=== PATIENT | female | born 1940 | race Caucasian/White ===

== ENCOUNTER 2019-09-08 13:00 | Emergency (ER) | payer MEDICARE, BC ==
[~2019-09-08] VITALS: Ht 160 cm; Wt 60.5 kg
[2019-09-08] MEDS ORDERED: PROAAER10 INH (13:15)
[2019-09-08] MEDS ORDERED: methylPREDNISolone INJ 125 MG/2 ML VIAL (J2930) IV ONE (13:15)
[2019-09-08] MEDS ORDERED: HYDR-3911 PO (13:15)
[2019-09-08] MEDS ORDERED: LOSA100T50 PO (13:15)
[2019-09-08] MEDS ORDERED: DILT1CAP7 PO (13:15)
[2019-09-08] MEDS ORDERED: IPRATROPIUM 0.5MG/ALBUTEROL 2.5MG INH SOL UD 3ML (DUONEB)(J7620) NEB ONE (13:15)
[2019-09-08] MEDS ORDERED: ATEN50TA2 PO (13:15)
[2019-09-08] MEDS ORDERED: ADV250INH INH (13:15)
[2019-09-08] MEDS ORDERED: SPIR1CAP INH (13:15)
[2019-09-08] MEDS ORDERED: DALI1TAB2 PO (13:16)
[2019-09-08 13:33] LABS: VENOUS BASE EXCESS 3.2 (-2.0-2.0); VENOUS O2 SATURATION 52.7 % (60.0-80.0); VENOUS PARTIAL PRESSURE CO2 54.9 mmHg (38.0-50.0); VENOUS PARTIAL PRESSURE O2 29.9 mmHg (30.0-50.0); VENOUS PH 7.355 UNITS (7.330-7.430); VENOUS STANDARD HCO3 26.2 MEQ/L; VENOUS TOTAL CO2 31.7 MEQ/L (24.0-28.0)
[2019-09-08 13:39] LABS: BASO # 0.1 10^3/uL (0.0-0.2); BASO % 0.6 % (0.0-1.0); EOS # 0.1 10^3/uL (0.0-0.5); EOS % 0.9 % (0.0-3.0); HEMATOCRIT 37.7 % (36.0-47.0); HEMOGLOBIN 12.7 g/dl (12.0-15.5); LYMPH # 1.6 10^3/uL (1.5-5.0); LYMPH % 12.3 % (24.0-44.0); MEAN CORPUSCULAR HEMOGLOBIN 30.2 pg (27.0-33.0); MEAN CORPUSCULAR HGB CONC 33.7 g/dl (32.0-36.5); MEAN CORPUSCULAR VOLUME 89.5 fl (80.0-96.0); MONO # 0.7 10^3/uL (0.0-0.8); MONO % 5.5 % (0.0-5.0); NEUTROPHILS # 10.1 10^3/uL (1.5-8.5); NEUTROPHILS % 80.3 % (36.0-66.0); PLATELET COUNT, AUTOMATED 362 10^3/uL (150-450); RED BLOOD COUNT 4.21 10^6/uL (4.00-5.40); WHITE BLOOD COUNT 12.6 10^3/uL (4.0-10.0)
--- NOTE | 2019-09-08 14:03 | REP ---
Single view chest: 09/08/2019. Indication: Dyspnea. Comparison: None. Findings: The lungs are clear. There is no pleural effusion or pneumothorax. The cardiac silhouette is unremarkable. Impression: Clear lungs. Electronically Signed by Ryan Bailey DO 09/08/2019 01:54 P
[2019-09-08 14:12] LABS: BLOOD UREA NITROGEN 8 MG/DL (7-18); CARBON DIOXIDE LEVEL 30 MEQ/L (21-32); CHLORIDE LEVEL 91 MEQ/L (98-107); CK-MB VALUE MASS 1.6 NG/ML (<3.6); CPK CREATINE PHOSPHOKINASE 63 U/L (26-192); CREATININE FOR GFR 0.62 MG/DL (0.55-1.30); GLOMERULAR FILTRATION RATE > 60.0 (>32); GLUCOSE, FASTING 118 MG/DL (70-100); MB/CK RELATIVE INDEX 2.54 (< OR =4); NT-PRO BNP 254 PG/ML (<450); POTASSIUM SERUM 4.2 MEQ/L (3.5-5.1); SODIUM LEVEL 128 MEQ/L (136-145); THYROID STIMULATING HORMONE 0.748 uIU/ML (0.358-3.740); TROPONIN I < 0.02 NG/ML (< 0.10)
[2019-09-08] MEDS ORDERED: PRED10TA2 PO (14:39)
[2019-09-08 14:45] VITALS: BP 134/67
--- NOTE | 2019-09-09 10:03 | ECGEPIP ---
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
== END 2019-09-08 15:17 | disposition home or self-care (01) ==
LOC: M ED 13:00
DX: J44.1 Chronic obstructive pulmonary disease with (acute) exacerbation (principal); I11.0 Hypertensive heart disease with heart failure; Z79.51 Long term (current) use of inhaled steroids; Z79.899 Other long term (current) drug therapy; Z79.1 Long term (current) use of non-steroidal anti-inflammatories (NSAID)
CPT/HCPCS: 71045; 80048; 82550; 82553; 82803; 83880; 84443; 84484; 85025; 87040; 93005; 93041; 96374; 99285; J2930

== ENCOUNTER 2021-07-09 14:08 | Inpatient (IN) | payer BC, MEDICARE ==
[~2021-07-09] VITALS: Ht 160 cm; Wt 53.0 kg
[~2021-07-09 14:08] MED LIST: ADV250INH INH; ATEN50TA2 PO; DALI1TAB2 PO; DILT1CAP7 PO; HYDR-3911 PO; LOSA100T50 PO; PRED10TA2 PO; PROAAER10 INH; SPIR1CAP INH
[2021-07-09] MEDS ORDERED: ATEN25TA PO (14:39)
[2021-07-09] MEDS ORDERED: ADV500INH INH (14:39)
[2021-07-09] MEDS ORDERED: LOSA100T8 PO (14:39)
[2021-07-09] MEDS ORDERED: methylPREDNISolone 125MG 2ML VIAL IV ONE (14:55)
[2021-07-09 15:34] LABS: BASO % 0.1 % (0.0-1.0); EOS % 0.1 % (0.0-3.0); HEMATOCRIT 35.7 % (36.0-47.0); LYMPH # 0.7 10^3/uL (1.5-5.0); LYMPH % 5.2 % (24.0-44.0); MEAN CORPUSCULAR HEMOGLOBIN 29.1 pg (27.0-33.0); MEAN CORPUSCULAR HGB CONC 33.6 g/dl (32.0-36.5); MEAN CORPUSCULAR VOLUME 86.4 fl (80.0-96.0); MONO # 0.4 10^3/uL (0.0-0.8); MONO % 2.5 % (2.0-8.0); NEUTROPHILS % 91.5 % (36.0-66.0); PLATELET COUNT, AUTOMATED 373 10^3/uL (150-450); RED BLOOD COUNT 4.13 10^6/uL (4.00-5.40); WHITE BLOOD COUNT 14.2 10^3/uL (4.0-10.0)
[2021-07-09 16:03] LABS: RSV AMPLIFICATION NEGATIVE (NEGATIVE)
[2021-07-09 16:05] LABS: ALBUMIN 3.5 GM/DL (3.2-5.2); ALT/SGPT 33 U/L (12-78); BILIRUBIN,DIRECT 0.2 MG/DL (0.0-0.2); BILIRUBIN,TOTAL 0.4 MG/DL (0.2-1.0); BLOOD UREA NITROGEN 11 MG/DL (7-18); CALCIUM LEVEL 8.6 MG/DL (8.8-10.2); CARBON DIOXIDE LEVEL 30 MEQ/L (21-32); CHLORIDE LEVEL 91 MEQ/L (98-107); CK-MB VALUE MASS 1.3 NG/ML (<3.6); CPK CREATINE PHOSPHOKINASE 23 U/L (26-192); CREATININE FOR GFR 0.58 MG/DL (0.55-1.30); GLOMERULAR FILTRATION RATE > 60.0 (>32); GLUCOSE, FASTING 150 MG/DL (70-100); MB/CK RELATIVE INDEX 5.65 (< OR =4); NT-PRO BNP 293 PG/ML (<450); POTASSIUM SERUM 4.6 MEQ/L (3.5-5.1); SODIUM LEVEL 127 MEQ/L (136-145); THYROID STIMULATING HORMONE 0.602 uIU/ML (0.358-3.740); TOTAL PROTEIN 6.8 GM/DL (6.4-8.2); TROPONIN I < 0.02 NG/ML (< 0.10)
--- NOTE | 2021-07-09 16:07 | REP ---
INDICATION: DYSPNEA/COUGH COMPARISON: 09/08/2019 TECHNIQUE: Portable AP view of the chest FINDINGS: The mediastinum and cardiac silhouette are stable and within normal limits for portable technique. The lung de la rosa demonstrate chronic interstitial changes without acute consolidation, effusion, or pneumothorax. Skeletal structures are intact. IMPRESSION: No acute cardiopulmonary process appreciated. <Electronically signed by Xavi Fontenot > 07/09/21 [id number]
[2021-07-09] MEDS ORDERED: IPRATROPIUM 0.5MG/ALBUTEROL 2.5MG INH SOL UD 3ML (DUONEB) NEB ONE (16:20)
--- NOTE | 2021-07-09 17:37 | HPEPDOC ---
[facility] Medical History & Physical Date of Admission Jul 09, 2021 Date of Service: Jul 09, 2021 History and Physical H&P dictated job 3 [id number] a/p 81 y/o F lives alone w 3l o2 dependent copd htn appy, hysterectomy failed on prednisone and abx for copd exacerbation managed by Dr. Armstrong presents w 1wk worsening sob , velazquez, weakness now dependent on her walker. cxr neg covid neg. copd exacerbation steroid induced leukocytosis chronic 2-3l home o2 dependent/hypoxic resp failure HTN -solumedrol iv q6hrs, doxycycline,nebs. cxr no infiltrate titrate o2 90-92% -pfs consult for assisted living placement per pt request -resume home bp meds. Vital Signs Vital Signs Date Time Temp Pulse Resp B/P (MAP) Pulse Ox O2 Delivery O2 Flow Rate FiO2 07/09/21 17:18 82 135/71 (92) 98 07/09/21 15:41 Nasal Cannula 3.0 07/09/21 14:09 98.3 19 Laboratory Data Labs 24H Laboratory Tests 2 07/09/21 14:58: Anion Gap 6L, Glomerular Filtration Rate > 60.0, Calcium Level 8.6L, Total Bilirubin 0.4, Direct Bilirubin 0.2, Aspartate Amino Transf (AST/SGOT) 17, Alanine Aminotransferase (ALT/SGPT) 33, Alkaline Phosphatase 81, Total Creatine Kinase 23L, Creatine Kinase MB 1.3, Creatine Kinase MB Relative Index 5.65H, Tro ponin I < 0.02, IR-Loh-T-Type Natriuretic Peptide 293, Total Protein 6.8, Albumin 3.5, Albumin/Globulin Ratio 1.1L, Thyroid Stimulating Hormone (TSH) 0.602 07/09/21 14:59: Immature Granulocyte % (Auto) 0.6, Neutrophils (%) (Auto) 91.5H, Lymphocytes (%) (Auto) 5.2L, Monocytes (%) (Auto) 2.5, Eosinophils (%) (Auto) 0.1, Basophils (%) (Auto) 0.1, Neutrophils # (Auto) 13.0H, Lymphocytes # (Auto) 0.7L, Monocytes # (Auto) 0.4, Eosinophils # (Auto) 0.0, Basophils # (Auto) 0.0, Nucleated Red Blood Cells % (auto) 0.0, Lactic Acid Level 1.2, Coronavirus (COVID-19)(PCR) NEGATIVE, Influenza Type A (RT-PCR) NEGATIVE, Influenza Type B (RT-PCR) NEGATIVE, Respiratory Syncytial Virus (PCR) NEGATIVE CBC/BMP Laboratory Tests 07/09/21 14:58 07/09/21 14:59 Microbiology Microbiology 07/09/21 Blood Culture, Received Pending 07/09/21 Blood Culture, Received Pending Home Medications Scheduled Diltiazem HCl (Diltiazem 24Hr ER) 300 Mg Cap.sa.24h, 1 CAP PO DAILY Hydralazine HCl (Hydralazine HCl) 50 Mg Tablet, 50 MG PO TID Prednisone (Prednisone) 10 Mg Tablet, 10 MG PO ASDIRECTED 4 po day 1-3; 3 po day 4-5; 2 po day 6-7; 1 po day 8-9, Salmeterol/Fluticasone (Advair 500-50 Diskus) 1 Each Blst.w.dev, 1 PUFF INH BID Tiotropium [place] (Spiriva) 18 Mcg Cap.w.dev, 18 MCG INH DAILY Scheduled PRN Albuterol Sulfate (Proair Hfa) 8.5 Gm Hfa.aer.ad, 1 PUFF INH for SHORTNESS OF BREATH Miscellaneous Medications Atenolol (Atenolol) 25 Mg Tablet Losartan/Hydrochlorothiazide (Losartan-Hctz 100-12.5 mg Tab) 1 Each Tablet Allergies Coded Allergies: No Known Allergies (Unverified , 09/08/19) A-FIB/CHADSVASC A-FIB History Current/History of A-Fib/PAF?: No Current PO Anticoag Therapy: No Age/Risk Factor Scoring CHADSVASC: CHADSVASC Response (Comments) Value Age Risk Factor Age >/= 75 years old 2 Gender Risk Factor Female 1 Hx of CHF No 0 Hx of HTN Yes 1 Hx of Stroke/TIA/or VTE No 0 Hx of Diabetes No 0 Hx of Vascular Disease No 0 Total 4 Treatment Treatment ordered: NONE ZHANE BUENROSTRO MD Jul 09, 2021 17:37
[2021-07-09] MEDS ORDERED: IPRA0.00 NEB (17:38)
[2021-07-09] MEDS ORDERED: HYDR-3910 PO (17:38)
[2021-07-09] MEDS ORDERED: FLUT1BLS3 INH (17:38)
[2021-07-09] MEDS ORDERED: PRED10TA2 PO (17:40)
[2021-07-09] MEDS ORDERED: HOME MED LIST COMPLETE! XX SCH (17:45)
[2021-07-09] MEDS: DOXYCYCLINE HYCLATE 100 MG in D5W MINI-BAG PLUS 100 ML IV SCH (18:08)
--- NOTE | 2021-07-09 18:23 | HPE ---
HISTORY AND PHYSICAL DATE OF ADMISSION: 07/09/2021 CHIEF COMPLAINT: Shortness of breath, productive cough. HISTORY OF PRESENT ILLNESS: This is an 81-year-old female with past medical history of chronic hypoxic respiratory failure on two liters of home oxygen followed by Dr. Armstrong, end-stage COPD, lives alone, COVID virus negative, had been treated with prednisone tapered home with two days left with persistent symptoms, dyspnea on exertion and generalized weakness. She denies any fever, chills, nausea, vomiting, chest pain, pressure, tightness. Cough is productive of white-yellow sputum which is improved after using her ProAir. Despite q.4 hourly albuterol, the patient had persistent symptoms on the tapering dose of her steroids. The hospitalist was asked to admit the patient for acute COPD exacerbation. Chest x-ray was negative. COVID virus negative. The patient had slight leukocytosis thought to be secondary to prednisone. PAST MEDICAL HISTORY: 1. COPD. 2. Chronic hypoxic respiratory failure on three liters of home oxygen. 3. Hypertension. PAST SURGICAL HISTORY: 1. Appendectomy. 2. Hysterectomy. SOCIAL HISTORY: Prior history of smoking, quit smoking. No recreational drug use or alcohol use, lives alone. FAMILY HISTORY: Noncontributory due to advanced age. REVIEW OF SYSTEMS: The patient denies weight gain or loss, fevers of chills. She does have a cough productive of white yellow sputum with chronic bronchitis, COPD on home oxygen at home. No chest pain, pressure or tightness. No changes in vision, vertigo, ear discharge, sore throat, dysuria or urinary frequency, flank pain. Denies nausea, vomiting, diarrhea, abdominal pain. Denies any skin rashes, muscle pain, joint pains, anxiety, depression. All other systems, 10 point review of systems otherwise negative. PHYSICAL EXAMINATION: VITAL SIGNS: Temperature 98.3, pulse 82, sinus, respiratory rate 19, blood pressure 135/71, 98% on three liters nasal cannula. GENERAL: The patient is awake, alert and oriented to person, place and time, very hard of hearing, poor dentition with missing teeth. Dry mucous membranes. Face is symmetric, Tongue is midline. She does have mild respiratory accessory muscle use, no conversational dyspnea. Able to speak in full sentences. HEENT: Extraocular muscles are intact. Tongue is midline. Uvula is midline. The patient has no jugular venous distention or thyromegaly. There is lymphadenopathy or carotid bruit. LUNGS: Diminished bilaterally, no expiratory wheezing, prolonged expiration, tripod positioning. Inspiratory, expiratory ratio prolonged. HEART: S1, S2, sinus rhythm. No murmurs, rubs or gallops. ABDOMEN: Soft, nontender and nondistended. Positive bowel sounds. EXTREMITIES: No cyanosis, clubbing or pitting edema. Chest x-ray: No acute pulmonary edema or infiltrate. EKG: Sinus rhythm, nonspecific ST-T wave changes with possible left atrial enlargement. ASSESSMENT AND PLAN: This is an 81-year-old female with history of chronic hypoxic respiratory failure, end-stage COPD, hypertension, appendectomy, hysterectomy, prior history of smoking, admitted for failed treatment of COPD exacerbation as an outpatient for COPD exacerbation as an inpatient for midnights. IMPRESSION: 1. COPD exacerbation. Patient will be started on IV Solu-Medrol 80 mg q.6 hourly, nebulizer treatments with Xopenex to prevent tachycardia, 1.25 mg q.1 hourly and q.4 hourly, doxycycline 100 b.i.d. 2. Chronic hypoxic respiratory failure due to end stage COPD. The patient is on 2-3 liters of home oxygen, titrate to 92% saturation. 3. Hypertension. Controlled on atenolol, hydralazine and diltiazem. May resume on home medications. 4. DVT prophylaxis with Lovenox, renally dosed if needed. 5. Disposition: Patient said that she cannot live alone anymore and would like to be placed in assisted living. ARU consulted. MORGAN
[2021-07-09] MEDS ORDERED: LEVALBUTEROL 1.25 MG/0.5 ML CONCENTRATE NEB INH SCH (20:00)
[2021-07-09] MEDS: ALBUTEROL SULFATE 2.5 MG/0.5 ML INH NEB SOLN NEB SCH ×2 (20:26→23:27)
[2021-07-09 21:03] VITALS: BP 146/61
[2021-07-09 22:00] VITALS: BP 146/61
[2021-07-09] MEDS: methylPREDNISolone 125MG 2ML VIAL IV SCH (23:32)
[2021-07-10] MEDS: ALBUTEROL SULFATE 2.5 MG/0.5 ML INH NEB SOLN NEB SCH ×6 (03:45→23:25)
[2021-07-10] MEDS: DOXYCYCLINE HYCLATE 100 MG in D5W MINI-BAG PLUS 100 ML IV SCH ×2 (05:16→18:46)
[2021-07-10] MEDS: methylPREDNISolone 125MG 2ML VIAL IV SCH ×3 (05:16→18:46)
[2021-07-10 07:14] LABS: HEMATOCRIT 33.9 % (36.0-47.0); HEMOGLOBIN 11.4 g/dl (12.0-15.5); MEAN CORPUSCULAR HEMOGLOBIN 28.8 pg (27.0-33.0); MEAN CORPUSCULAR HGB CONC 33.6 g/dl (32.0-36.5); MEAN CORPUSCULAR VOLUME 85.6 fl (80.0-96.0); PLATELET COUNT, AUTOMATED 375 10^3/uL (150-450); RED BLOOD COUNT 3.96 10^6/uL (4.00-5.40); WHITE BLOOD COUNT 9.7 10^3/uL (4.0-10.0)
[2021-07-10 07:23] LABS: BLOOD UREA NITROGEN 11 MG/DL (7-18); CALCIUM LEVEL 9.4 MG/DL (8.8-10.2); CARBON DIOXIDE LEVEL 29 MEQ/L (21-32); CHLORIDE LEVEL 93 MEQ/L (98-107); GLOMERULAR FILTRATION RATE > 60.0 (>32); GLUCOSE, FASTING 163 MG/DL (70-100); POTASSIUM SERUM 4.2 MEQ/L (3.5-5.1); SODIUM LEVEL 127 MEQ/L (136-145)
--- NOTE | 2021-07-10 08:54 | ECGEPIP ---
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
[2021-07-10] MEDS: ENOXAPARIN 30MG/0.3ML SYRINGE (J1650 PER 10MG) SC SCH (09:17)
--- NOTE | 2021-07-10 10:09 | IPNPDOC ---
Date Seen The patient was seen on 07/10/21. Progress Note Subjective: Still complains of dyspnea especially from lying down to sitting even at the bedside with minimal movement. No cough fever chills Denies chest pain pressure tightness lightheadedness or dizziness PHYSICAL EXAMINATION: VITAL SIGNS: See below GENERAL: Sitting on the bed having breakfast Mild conversational 6-7 word dyspnea unable to complete full sentences Positive use of respiratory accessory muscles HEENT: Extraocular muscles are intact. Tongue is midline. Uvula is midline. The patient has no jugular venous distention or thyromegaly. There is lymphadenopathy or carotid bruit. LUNGS: Diminished bilaterally, no expiratory wheezing, prolonged expiration, tripod positioning. Inspiratory, expiratory ratio prolonged. HEART: S1, S2, sinus rhythm. No murmurs, rubs or gallops. ABDOMEN: Soft, nontender and nondistended. Positive bowel sounds. EXTREMITIES: No cyanosis, clubbing or pitting edema. Chest x-ray: No acute pulmonary edema or infiltrate. EKG: Sinus rhythm, nonspecific ST-T wave changes with possible left atrial enlargement. ASSESSMENT AND PLAN: This is an 81-year-old female with history of chronic hypoxic respiratory failure, end-stage COPD, hypertension, appendectomy, hysterectomy, prior history of smoking, admitted for failed treatment of COPD exacerbation as an outpatient for COPD exacerbation as an inpatient for midnights. IMPRESSION: 1. COPD exacerbation. No significant clinical improvement overnight Patient will be kept on on IV Solu-Medrol 80 mg q.6hourly, nebulizer treatments with Xopenex to prevent tachycardia, doxycycline 100 b.i.d. for anti-inflammatory effect Chest x-ray shows no acute infiltrate or consolidation 2. Chronic hypoxic respiratory failure due to end stage COPD. Continue supplemental oxygen titrate to 90 to 92% 3. Hypertension. Controlled on atenolol, hydralazine and diltiazem. 4. DVT prophylaxis with Lovenox, renally dosed if needed. 5. Disposition: Patient requested assisted living placement PFS consulted VS, I&O, 24H, [place] Vital Signs/I&O Vital Signs Date Time Temp Pulse Resp B/P (MAP) Pulse Ox O2 Delivery O2 Flow Rate FiO2 07/10/21 06:00 97.6 103 39 90 Nasal Cannula 3.0 07/09/21 22:00 146/61 (89) I&O- Last 24 Hours up to 6 AM 07/10/21 06:00 Intake Total 250 ml Output Total 120 ml Balance 130 ml Laboratory Data 24H LABS Laboratory Tests 2 07/09/21 14:58: Anion Gap 6L, Glomerular Filtration Rate > 60.0, Calcium Level 8.6L, Total Bilirubin 0.4, Direct Bilirubin 0.2, Aspartate Amino Transf (AST/SGOT) 17, Alanine Aminotransferase (ALT/SGPT) 33, Alkaline Phosphatase 81, Total Creatine Kinase 23L, Creatine Kinase MB 1.3, Creatine Kinase MB Relative Index 5.65H, Troponin I < 0.02, EV-Ukd-U-Type Natriuretic Peptide 293, Total Protein 6.8, Albumin 3.5, Albumin/Globulin Ratio 1.1L, Thyroid Stimulating Hormone (TSH) 0.602 07/09/21 14:59: Immature Granulocyte % (Auto) 0.6, Neutrophils (%) (Auto) 91.5H, Lymphocytes (%) (Auto) 5.2L, Monocytes (%) (Auto) 2.5, Eosinophils (%) (Auto) 0.1, Basophils (%) (Auto) 0.1, Neutrophils # (Auto) 13.0H, Lymphocytes # (Auto) 0.7L, Monocytes # (Auto) 0.4, Eosinophils # (Auto) 0.0, Basophils # (Auto) 0.0, Nucleated Red Blood Cells % (auto) 0.0, Lactic Acid Level 1.2, Coronavirus (COVID-19)(PCR) NEGATIVE, Influenza Type A (RT-PCR) NEGATIVE, Influenza Type B (RT-PCR) NE GATIVE, Respiratory Syncytial Virus (PCR) NEGATIVE 07/10/21 06:35: Anion Gap 5L, Glomerular Filtration Rate > 60.0, Calcium Level 9.4, Nucleated Red Blood Cells % (auto) 0.0 CBC/BMP Laboratory Tests 07/09/21 14:58 07/09/21 14:59 07/10/21 06:35 Microbiology Microbiology 07/09/21 Blood Culture, Received Pending 07/09/21 Blood Culture, Received Pending ZHANE BUENROSTRO MD Jul 10, 2021 10:09
[2021-07-10] MEDS ORDERED: atenoloL 25 MG TAB PO ONE (18:00)
[2021-07-10] MEDS: **hydrALAZINE HCL** 25 MG TAB PO SCH (18:52)
[2021-07-10 22:00] VITALS: BP 146/71
[2021-07-11] MEDS: methylPREDNISolone 125MG 2ML VIAL IV SCH ×5 (00:48→23:54)
[2021-07-11] MEDS: ALBUTEROL SULFATE 2.5 MG/0.5 ML INH NEB SOLN NEB SCH ×2 (03:42→07:59)
[2021-07-11] MEDS: DOXYCYCLINE HYCLATE 100 MG in D5W MINI-BAG PLUS 100 ML IV SCH ×2 (05:19→18:21)
[2021-07-11 06:00] VITALS: BP 115/58
[2021-07-11 07:10] LABS: HEMATOCRIT 30.7 % (36.0-47.0); HEMOGLOBIN 10.4 g/dl (12.0-15.5); MEAN CORPUSCULAR HGB CONC 33.9 g/dl (32.0-36.5); MEAN CORPUSCULAR VOLUME 85.5 fl (80.0-96.0); PLATELET COUNT, AUTOMATED 316 10^3/uL (150-450); RED BLOOD COUNT 3.59 10^6/uL (4.00-5.40); WHITE BLOOD COUNT 14.9 10^3/uL (4.0-10.0)
[2021-07-11 07:22] LABS: BLOOD UREA NITROGEN 17 MG/DL (7-18); CALCIUM LEVEL 8.8 MG/DL (8.8-10.2); CARBON DIOXIDE LEVEL 29 MEQ/L (21-32); CHLORIDE LEVEL 97 MEQ/L (98-107); CREATININE FOR GFR 0.67 MG/DL (0.55-1.30); GLOMERULAR FILTRATION RATE > 60.0 (>32); GLUCOSE, FASTING 146 MG/DL (70-100); POTASSIUM SERUM 4.2 MEQ/L (3.5-5.1); SODIUM LEVEL 133 MEQ/L (136-145)
[2021-07-11] MEDS: ENOXAPARIN 30MG/0.3ML SYRINGE (J1650 PER 10MG) SC SCH (08:58)
[2021-07-11] MEDS: **hydrALAZINE HCL** 25 MG TAB PO SCH ×2 (08:59→20:35)
[2021-07-11] MEDS: atenoloL 25 MG TAB PO SCH (08:59)
[2021-07-11] MEDS ORDERED: MIRALAX *UNIT DOSE* 17GM PACKET PO PRN (09:05)
[2021-07-11] MEDS ORDERED: ISOVUE-370 76% 100ML VIAL As Ordered ONE (09:18)
[2021-07-11] MEDS: guaiFENesin ER 600 MG TAB PO SCH ×2 (09:30→20:35)
[2021-07-11] MEDS: SIMETHICONE 80MG CHEW TAB PO PRN ×2 (09:30→15:43)
[2021-07-11] MEDS: SENOKOT S TAB PO PRN (09:30)
[2021-07-11 09:43] LABS: ABG BASE EXCESS 0.8 (-2.0-2.0); ABG HCO3 26.5 MEQ/L (22.0-26.0); ABG O2 SATURATION 98.3 % (95.0-99.0); ABG PARTIAL PRESSURE O2 112.4 mmHg (75.0-100.0); ABG STANDARD HCO3 25.2 MEQ/L (22.0-26.0); ABG TOTAL CO2 27.9 MEQ/L (23.0-31.0); ABG pH (ARTERIAL) 7.369 UNITS (7.350-7.450)
[2021-07-11 09:50] LABS: NT-PRO BNP 547 PG/ML (<450)
--- NOTE | 2021-07-11 09:51 | REP ---
INDICATION: sob COMPARISON: 07/09/2021 TECHNIQUE: Portable AP view of the chest FINDINGS: The mediastinum and cardiac silhouette are stable and within normal limits for portable technique. The lung de la rosa again demonstrate diffuse chronic interstitial changes. No obvious focal consolidation, effusion, or pneumothorax. Skeletal structures are intact. IMPRESSION: Chronic appearing changes. No focal consolidation or effusion. <Electronically signed by Xavi Fontenot > 07/11/21 0924
--- NOTE | 2021-07-11 10:10 | REP ---
INDICATION: r/o pe hypoxic COMPARISON: None. TECHNIQUE: Axial contrast enhanced images from the thoracic inlet to the upper abdomen using pulmonary embolus technique with multiplanar re-formations. 75 ml Isovue 370 intravenous contrast material administered without complication. This CT examination was performed using the following dose reduction techniques: Automated exposure control, adjustment of mA and/or kv according to the patient's size, and use of iterative reconstruction technique. FINDINGS: Satisfactory enhancement of the pulmonary vasculature is achieved but significant motion artifact degrades image quality. No definite pulmonary embolus noted. Lung de la rosa demonstrate advanced COPD/emphysematous changes with minimal scattered scarring. No acute consolidation. No effusion. No pneumothorax. Tracheobronchial tree demonstrates chronic bronchiectasis. No obvious adenopathy. Further evaluation of the mediastinum demonstrates atherosclerotic changes to the thoracic aorta and coronary arteries without aortic aneurysm or dissection. No cardiomegaly or pericardial effusion. Musculoskeletal structures demonstrate age-related osteopenia and degenerative changes. Limited upper abdomen demonstrates hyperplastic changes to the left adrenal gland. The kidneys are incompletely evaluated but bilateral cysts are noted. Subtle low-density changes extending through the visualized left renal cortex raise the possibility of pyelonephritis and correlation with urinalysis is recommended. IMPRESSION: 1. Advanced chronic COPD/emphysematous changes. No obvious pulmonary embolus. 2. No acute mediastinal or pleuroparenchymal process. 3. Atherosclerotic changes to the aorta and coronary arteries. 4. Incomplete evaluation of the kidneys demonstrate cysts and possible pyelonephritis for which urinalysis may be warranted. <Electronically signed by Xavi Fontenot > 07/11/21 1007
[2021-07-11] MEDS: LEVALBUTEROL 1.25 MG/0.5 ML CONCENTRATE NEB INH SCH ×3 (10:12→12:50)
[2021-07-11 14:00] VITALS: BP 118/60
[2021-07-11] MEDS: LEVALBUTEROL 1.25 MG/0.5 ML CONCENTRATE NEB INH PRN (15:14)
[2021-07-11 20:00] VITALS: BP 157/81
[2021-07-12] MEDS: DOXYCYCLINE HYCLATE 100 MG in D5W MINI-BAG PLUS 100 ML IV SCH ×2 (05:23→17:41)
[2021-07-12] MEDS: methylPREDNISolone 125MG 2ML VIAL IV SCH ×2 (05:23→17:41)
[2021-07-12 06:00] VITALS: BP 133/73
[2021-07-12 06:06] LABS: HEMATOCRIT 31.8 % (36.0-47.0); HEMOGLOBIN 10.7 g/dl (12.0-15.5); MEAN CORPUSCULAR HEMOGLOBIN 29.1 pg (27.0-33.0); MEAN CORPUSCULAR HGB CONC 33.6 g/dl (32.0-36.5); MEAN CORPUSCULAR VOLUME 86.4 fl (80.0-96.0); PLATELET COUNT, AUTOMATED 220 10^3/uL (150-450); RED BLOOD COUNT 3.68 10^6/uL (4.00-5.40); WHITE BLOOD COUNT 14.7 10^3/uL (4.0-10.0)
[2021-07-12 06:34] LABS: BLOOD UREA NITROGEN 19 MG/DL (7-18); CALCIUM LEVEL 8.6 MG/DL (8.8-10.2); CARBON DIOXIDE LEVEL 28 MEQ/L (21-32); CHLORIDE LEVEL 97 MEQ/L (98-107); GLOMERULAR FILTRATION RATE > 60.0 (>32); GLUCOSE, FASTING 124 MG/DL (70-100); POTASSIUM SERUM 4.4 MEQ/L (3.5-5.1); SODIUM LEVEL 129 MEQ/L (136-145)
[2021-07-12] MEDS: LEVALBUTEROL 1.25 MG/0.5 ML CONCENTRATE NEB INH PRN (08:58)
[2021-07-12] MEDS: guaiFENesin ER 600 MG TAB PO SCH ×2 (09:00→20:43)
[2021-07-12] MEDS: SIMETHICONE 80MG CHEW TAB PO PRN (09:00)
[2021-07-12] MEDS: ENOXAPARIN 30MG/0.3ML SYRINGE (J1650 PER 10MG) SC SCH (09:01)
[2021-07-12] MEDS: **hydrALAZINE HCL** 25 MG TAB PO SCH ×2 (09:04→20:43)
[2021-07-12] MEDS: atenoloL 25 MG TAB PO SCH (09:04)
[2021-07-12 10:56] VITALS: BP 153/82
--- NOTE | 2021-07-12 11:14 | IPN ---
PROGRESS NOTE DATE: 07/12/2021 SUBJECTIVE: Zuleyma was admitted with a COPD exacerbation, failed outpatient therapy, is on intravenous steroids. She does not like albuterol. She prefers Xopenex. She also wants to use a hand-held inhaler rather than nebulized treatment. She is quite set in her ways as far as treating her COPD. Other medical problems include hypertension and advanced age. OBJECTIVE: VITAL SIGNS: Blood pressure 159/82, pulse 100, respiratory rate 17, 98% O2 saturation on 3 liters. GENERAL APPEARANCE: Alert, conversant, no distress. She indicates that she feels tight in her upper chest. LUNGS: Entirely clear. HEART: Regular rate and rhythm. ABDOMEN: Soft, nontender. EXTREMITIES: No peripheral edema. LABS: White count 14.7 on steroids, hemoglobin 10.7, platelets 220. Sodium 129, potassium 4.4, BUN 19, creatinine 0.6. TSH was normal. IMPRESSION AND PLAN: 1. Exacerbation of COPD. She is on high dose methylprednisolone. We will reduce the dose of this to 60 mg q.12h. She would rather have a hand-held inhaler than a nebulizer so we will order that on an as needed basis. She can choose what she is going to use. Continue IV doxycycline. Probably change to by mouth tomorrow. 2. Hypertension, well controlled on current regimen. 3. Hyponatremia. This looks chronic, and she is asymptomatic from it. Not uncommon at age of 81 to have some low grade hyponatremia and she is tolerating this well. I do not think this requires any intervention.
[2021-07-12] MEDS: LEVALBUTEROL HFA 45MCG/ACT 15 GM INHALER INH PRN ×4 (11:15→23:06)
[2021-07-12 14:00] VITALS: BP 151/77
[2021-07-12] MEDS ORDERED: GLYCERIN ADULT SUPP PR PRN (17:55)
[2021-07-12 22:00] VITALS: BP 139/74
[2021-07-13] MEDS: LEVALBUTEROL HFA 45MCG/ACT 15 GM INHALER INH PRN ×2 (02:44→07:06)
[2021-07-13] MEDS: methylPREDNISolone 125MG 2ML VIAL IV SCH ×2 (04:28→18:20)
[2021-07-13] MEDS: DOXYCYCLINE HYCLATE 100 MG in D5W MINI-BAG PLUS 100 ML IV SCH (05:06)
[2021-07-13 06:00] VITALS: BP 123/60
[2021-07-13] MEDS: SIMETHICONE 80MG CHEW TAB PO PRN (06:12)
[2021-07-13 06:16] LABS: HEMATOCRIT 33.1 % (36.0-47.0); MEAN CORPUSCULAR HGB CONC 33.2 g/dl (32.0-36.5); MEAN CORPUSCULAR VOLUME 87.3 fl (80.0-96.0); PLATELET COUNT, AUTOMATED 284 10^3/uL (150-450); RED BLOOD COUNT 3.79 10^6/uL (4.00-5.40); WHITE BLOOD COUNT 14.5 10^3/uL (4.0-10.0)
[2021-07-13 06:41] LABS: BLOOD UREA NITROGEN 19 MG/DL (7-18); CARBON DIOXIDE LEVEL 29 MEQ/L (21-32); CHLORIDE LEVEL 98 MEQ/L (98-107); GLOMERULAR FILTRATION RATE > 60.0 (>32); GLUCOSE, FASTING 95 MG/DL (70-100); POTASSIUM SERUM 4.3 MEQ/L (3.5-5.1); SODIUM LEVEL 132 MEQ/L (136-145)
[2021-07-13] MEDS: **hydrALAZINE HCL** 25 MG TAB PO SCH ×2 (09:06→21:00)
[2021-07-13] MEDS: ENOXAPARIN 30MG/0.3ML SYRINGE (J1650 PER 10MG) SC SCH (09:06)
[2021-07-13] MEDS: guaiFENesin ER 600 MG TAB PO SCH ×2 (09:06→21:07)
[2021-07-13] MEDS: atenoloL 25 MG TAB PO SCH (09:06)
[2021-07-13] MEDS: SENOKOT S TAB PO PRN (09:10)
--- NOTE | 2021-07-13 10:30 | IPN ---
PROGRESS NOTE DATE: 07/13/2021 SUBJECTIVE: Zuleyma feels a little better. She would like an adjustment on her inhalers, she is quite particular about how she receives these, less shortness of breath and less cough. She is a bit constipated today. OBJECTIVE: VITAL SIGNS: Stable. Saturation 99% on 3 liters. GENERAL APPEARANCE: Alert and conversant. LUNGS: Clear. HEART: Regular rhythm. ABDOMEN: Soft, nontender, nondistended. EXTREMITIES: No peripheral edema. LABORATORY DATA: White count 14.5, hemoglobin 11, platelets 284,000, sodium 132, potassium 4.3, BUN 19, creatinine 0.4. IMPRESSION: 1. Exacerbation of COPD, we will acquiesce to her request and change her Xopenex inhaler to every 4 hour schedule. She is on IV Doxycycline, will change to p.o. Doxycycline today. 2. Hyponatremia, chronic, asymptomatic and unchanged. 3. Hypertension, well-controlled on current regimen. 4. Constipation, Miralax has been ordered.
[2021-07-13] MEDS: LEVALBUTEROL HFA 45MCG/ACT 15 GM INHALER INH SCH ×4 (11:07→23:10)
[2021-07-13] MEDS: MIRALAX *UNIT DOSE* 17GM PACKET PO SCH (11:36)
[2021-07-13 14:00] VITALS: BP 127/65
[2021-07-13] MEDS: DOXYCYCLINE HYCLATE 100MG TABLET PO SCH (21:08)
[2021-07-13 22:00] VITALS: BP 127/65
[2021-07-14] MEDS: LEVALBUTEROL HFA 45MCG/ACT 15 GM INHALER INH SCH ×3 (03:03→11:18)
[2021-07-14] MEDS: methylPREDNISolone 125MG 2ML VIAL IV SCH (05:29)
[2021-07-14 06:00] VITALS: BP 127/65
[2021-07-14 07:25] LABS: HEMATOCRIT 32.5 % (36.0-47.0); HEMOGLOBIN 10.7 g/dl (12.0-15.5); MEAN CORPUSCULAR HEMOGLOBIN 29.1 pg (27.0-33.0); MEAN CORPUSCULAR HGB CONC 32.9 g/dl (32.0-36.5); MEAN CORPUSCULAR VOLUME 88.3 fl (80.0-96.0); PLATELET COUNT, AUTOMATED 242 10^3/uL (150-450); RED BLOOD COUNT 3.68 10^6/uL (4.00-5.40); WHITE BLOOD COUNT 9.9 10^3/uL (4.0-10.0)
[2021-07-14 07:36] LABS: BLOOD UREA NITROGEN 17 MG/DL (7-18); CALCIUM LEVEL 8.4 MG/DL (8.8-10.2); CARBON DIOXIDE LEVEL 29 MEQ/L (21-32); CHLORIDE LEVEL 100 MEQ/L (98-107); CREATININE FOR GFR 0.38 MG/DL (0.55-1.30); GLOMERULAR FILTRATION RATE > 60.0 (>32); GLUCOSE, FASTING 88 MG/DL (70-100); POTASSIUM SERUM 4.3 MEQ/L (3.5-5.1); SODIUM LEVEL 133 MEQ/L (136-145)
[2021-07-14 08:00] VITALS: BP 148/76
[2021-07-14] MEDS: guaiFENesin ER 600 MG TAB PO SCH (08:30)
[2021-07-14] MEDS: **hydrALAZINE HCL** 25 MG TAB PO SCH (08:30)
[2021-07-14 08:31] VITALS: BP 148/76
[2021-07-14] MEDS: atenoloL 25 MG TAB PO SCH (08:31)
[2021-07-14] MEDS: DOXYCYCLINE HYCLATE 100MG TABLET PO SCH (08:32)
[2021-07-14] MEDS: MIRALAX *UNIT DOSE* 17GM PACKET PO SCH (08:33)
[2021-07-14] MEDS: SIMETHICONE 80MG CHEW TAB PO PRN (08:33)
[2021-07-14] MEDS: ENOXAPARIN 30MG/0.3ML SYRINGE (J1650 PER 10MG) SC SCH (08:33)
[2021-07-14 09:17] VITALS: BP 135/63
[2021-07-14] MEDS ORDERED: PRED10TA2 PO (11:40)
[2021-07-14 14:00] VITALS: BP 114/52
--- NOTE | 2021-07-14 15:08 | DSES ---
DISCHARGE SUMMARY DATE OF ADMISSION: 07/09/2021 DATE OF DISCHARGE: 07/14/2021 PRINCIPAL DIAGNOSIS: Exacerbation of chronic obstructive pulmonary disease secondary to bronchitis. SECONDARY DIAGNOSES: 1. Chronic hypoxic respiratory failure due to end-stage chronic obstructive pulmonary disease, requiring supplemental oxygen. 2. Hypertensive heart disease. HISTORY: Patient is an 81-year-old who presented with exacerbation of chronic obstructive pulmonary disease (COPD). See history and physical for admission. HOSPITAL COURSE: She was admitted to a medical bed. She was fairly symptomatic early in the hospitalization. She had angiographic CT of the chest that showed no acute infiltrate, no pulmonary embolism. She is fairly certain in the way she likes to have her inhalers prescribed, and once I had those down just right she felt better and then felt like she was ready to go home. Today she says she can do better at home than she can do in the hospital. She is asking for discharge. On exam today, her oxygen saturation is 95%. Her vital signs are stable, 140/60. She is alert, conversant. Lungs entirely clear with decreased breath sounds. Heart regular rate and rhythm. Abdomen soft, nontender. No peripheral edema. LABORATORY DATA: Electrolytes: Sodium 133 (chronic mild hyponatremia, common in elderly), potassium 4.3, BUN 17, creatinine 0.4, glucose 88. White count 9.9, hemoglobin 10.7, platelets 242. COVID test was negative. CT of the chest showed no infiltrate. DISPOSITION: She is discharged home in improved and stable condition. She will followup with primary care provider in a week. She usually uses oxygen 2 liters nasal cannula at home, which she will continue. Her medications will continue to be inhalers, which she can take exactly the way she wants when she is home. She would like to take her albuterol inhalers, two puffs every 4 hours. Also atenolol 25 mg daily, diltiazem ER 300 mg daily, Wixela 500/50 one inhalation twice a day, hydralazine 25 mg twice a day, DuoNeb four times a day as needed, losartan/hydrochlorothiazide 100/12.5 one daily, Spiriva one inhalation daily. She can continue her prednisone, augmenting the dose to 40 mg daily until she sees her primary care provider, which should be within a week, and they can work on tapering down her prednisone at that time.
== END 2021-07-14 14:32 | disposition home health service (06) | DRG 140 ==
LOC: M ED 14:08 → M ED INP 16:40 → M MSPAV 21:03
PROVIDERS: ADMIT General Practice; ATTEND Family Medicine
DX: J44.1 Chronic obstructive pulmonary disease with (acute) exacerbation (principal); J96.11 Chronic respiratory failure with hypoxia; Z99.81 Dependence on supplemental oxygen; E87.1 Hypo-osmolality and hyponatremia; I11.9 Hypertensive heart disease without heart failure; Z79.52 Long term (current) use of systemic steroids; Z79.899 Other long term (current) drug therapy; Z87.891 Personal history of nicotine dependence; K59.00 Constipation, unspecified

== ENCOUNTER 2022-04-06 16:48 | Emergency (ER) | payer BC ==
[~2022-04-06] VITALS: Ht 162.6 cm; Wt 48.6 kg
[2022-04-06 16:48] VITALS: BP 194/93
[~2022-04-06 16:48] MED LIST changes: +ADV500INH INH; +ATEN25TA PO; +FLUT1BLS3 INH; +HYDR-3910 PO; +IPRA0.00 NEB; +LOSA100T45 PO; -LOSA100T50 PO; +LOSA100T8 PO
[2022-04-06] MEDS ORDERED: ADV500INH INH (16:59)
[2022-04-06] MEDS ORDERED: ALBU8.5H (16:59)
[2022-04-06] MEDS ORDERED: CETI-24 PO (16:59)
[2022-04-06 18:00] LABS: BASO # 0.1 10^3/uL (0.0-0.2); BASO % 0.5 % (0.0-1.0); EOS # 0.1 10^3/uL (0.0-0.5); EOS % 1.1 % (0.0-3.0); HEMATOCRIT 41.3 % (36.0-47.0); HEMOGLOBIN 13.4 g/dl (12.0-15.5); LYMPH # 1.9 10^3/uL (1.5-5.0); LYMPH % 16.7 % (24.0-44.0); MEAN CORPUSCULAR HEMOGLOBIN 29.8 pg (27.0-33.0); MEAN CORPUSCULAR HGB CONC 32.4 g/dl (32.0-36.5); MEAN CORPUSCULAR VOLUME 91.8 fl (80.0-96.0); MONO # 0.8 10^3/uL (0.0-0.8); MONO % 6.9 % (2.0-8.0); NEUTROPHILS # 8.3 10^3/uL (1.5-8.5); NEUTROPHILS % 74.4 % (36.0-66.0); PLATELET COUNT, AUTOMATED 291 10^3/uL (150-450); WHITE BLOOD COUNT 11.2 10^3/uL (4.0-10.0)
[2022-04-06 18:32] LABS: ALBUMIN 3.9 GM/DL (3.2-5.2); ALT/SGPT 13 U/L (12-78); BILIRUBIN,DIRECT 0.1 MG/DL (0.0-0.2); BILIRUBIN,TOTAL 0.3 MG/DL (0.2-1.0); BLOOD UREA NITROGEN 8 MG/DL (7-18); CALCIUM LEVEL 9.8 MG/DL (8.8-10.2); CARBON DIOXIDE LEVEL 29 MEQ/L (21-32); CHLORIDE LEVEL 101 MEQ/L (98-107); CREATININE FOR GFR 0.57 MG/DL (0.55-1.30); GLOMERULAR FILTRATION RATE > 60.0 (>32); GLUCOSE, FASTING 112 MG/DL (70-100); LIPASE 89 U/L (73-393); POTASSIUM SERUM 4.1 MEQ/L (3.5-5.1); SODIUM LEVEL 137 MEQ/L (136-145); TOTAL PROTEIN 7.1 GM/DL (6.4-8.2)
== END 2022-04-06 22:36 | disposition left against medical advice (07) ==
LOC: M ED 16:48
DX: Z53.21 Procedure and treatment not carried out due to patient leaving prior to being seen by health care provider (principal)

== ENCOUNTER 2022-09-29 12:42 | Inpatient (IN) | payer BC ==
[~2022-09-29] VITALS: Ht 162.6 cm; Wt 48.9 kg
[~2022-09-29 12:42] MED LIST changes: +ALBU8.5H; +CETI-24 PO
[2022-09-29] MEDS ORDERED: methylPREDNISolone 125MG 2ML VIAL IV ONE (13:10)
[2022-09-29] MEDS: COMBIVENT RESPIMAT 100-20MCG INHALER 4GM INH SCH ×3 (13:14→14:29)
[2022-09-29 13:23] LABS: BASO # 0.1 10^3/uL (0.0-0.2); BASO % 0.2 % (0.0-1.0); EOS # 0.1 10^3/uL (0.0-0.5); EOS % 0.4 % (0.0-3.0); HEMATOCRIT 40.9 % (36.0-47.0); HEMOGLOBIN 13.3 g/dl (12.0-15.5); LYMPH # 1.3 10^3/uL (1.5-5.0); LYMPH % 5.8 % (24.0-44.0); MEAN CORPUSCULAR HEMOGLOBIN 29.9 pg (27.0-33.0); MEAN CORPUSCULAR HGB CONC 32.5 g/dl (32.0-36.5); MEAN CORPUSCULAR VOLUME 91.9 fl (80.0-96.0); MONO # 1.5 10^3/uL (0.0-0.8); MONO % 6.6 % (2.0-8.0); NEUTROPHILS # 19.1 10^3/uL (1.5-8.5); NEUTROPHILS % 86.4 % (36.0-66.0); PLATELET COUNT, AUTOMATED 253 10^3/uL (150-450); RED BLOOD COUNT 4.45 10^6/uL (4.00-5.40); WHITE BLOOD COUNT 22.1 10^3/uL (4.0-10.0)
[2022-09-29 14:08] LABS: ALBUMIN 3.4 GM/DL (3.2-5.2); ALT/SGPT 19 U/L (12-78); BILIRUBIN,DIRECT 0.2 MG/DL (0.0-0.2); BILIRUBIN,TOTAL 0.6 MG/DL (0.2-1.0); BLOOD UREA NITROGEN 12 MG/DL (7-18); CALCIUM LEVEL 8.9 MG/DL (8.8-10.2); CARBON DIOXIDE LEVEL 30 MEQ/L (21-32); CHLORIDE LEVEL 98 MEQ/L (98-107); CREATININE FOR GFR 0.76 MG/DL (0.55-1.30); GLOMERULAR FILTRATION RATE > 60.0 (>32); GLUCOSE, FASTING 143 MG/DL (70-100); NT-PRO BNP 774 PG/ML (<450); POTASSIUM SERUM 3.9 MEQ/L (3.5-5.1); SODIUM LEVEL 133 MEQ/L (136-145); THYROID STIMULATING HORMONE 0.554 uIU/ML (0.358-3.740); THYROXINE (T4) 9.1 UG/DL (4.5-12.0); TOTAL PROTEIN 6.4 GM/DL (6.4-8.2)
[2022-09-29] MEDS ORDERED: ISOVUE-370 76% 100ML VIAL As Ordered ONE (14:37)
[2022-09-29] MEDS ORDERED: IPRATROPIUM 0.5MG/ALBUTEROL 2.5MG INH SOL UD 3ML (DUONEB) NEB PRN (15:15)
[2022-09-29] MEDS ORDERED: LOSARTAN 50MG TABLET PO ONE (15:15)
[2022-09-29] MEDS ORDERED: FEXO-117 PO (16:03)
[2022-09-29] MEDS ORDERED: BUDE0.5S6 INH (16:03)
[2022-09-29] MEDS ORDERED: OMEP40CA5 PO (16:03)
[2022-09-29] MEDS ORDERED: VENTAER INH (16:03)
[2022-09-29] MEDS ORDERED: AZIT-12 PO (16:03)
[2022-09-29] MEDS ORDERED: PRED10TA2 PO (16:08)
[2022-09-29] MEDS ORDERED: HOME MED LIST COMPLETE! XX SCH (16:15)
[2022-09-29 16:23] LABS: C REACTIVE PROTEIN QUANTITATIV 3.42 MG/DL (0.00-0.30)
[2022-09-29 16:29] LABS: CK-MB VALUE MASS 1.1 NG/ML (<3.6); MB/CK RELATIVE INDEX 3.14 (< OR =4)
[2022-09-29 16:43] LABS: ERYTHROCYTE SEDIMENTATION RATE 5 mm/hr (0-30)
[2022-09-29] MEDS ORDERED: FEXOFENADINE 60MG TAB PO PRN (18:30)
[2022-09-29] MEDS: BUDESONIDE 0.5 MG/2 ML INHALATION SUSPENSION INH SCH (20:00)
[2022-09-29] MEDS: DOXYCYCLINE HYCLATE 100MG TABLET PO SCH (20:17)
[2022-09-29] MEDS: methylPREDNISolone 125MG 2ML VIAL IV SCH (20:17)
[2022-09-29] MEDS: IBUPROFEN 200MG TAB PO SCH (20:30)
[2022-09-29] MEDS: DICLOFENAC EPOLAMINE 1.3 % PATCH TOP SCH (20:31)
[2022-09-29] MEDS: IPRATROPIUM 0.5MG/ALBUTEROL 2.5MG INH SOL UD 3ML (DUONEB) NEB SCH (20:43)
[2022-09-29] MEDS ORDERED: ACETAMINOPHEN 500 MG TAB PO SCH (21:00)
[2022-09-29 22:32] VITALS: BP 151/81
[2022-09-29] MEDS: traMADol 50 MG TAB PO PRN (22:50)
[2022-09-29] MEDS ORDERED: ENTER DRUG NAME HERE (PATIENT'S OWN MED) INH PRN (22:55)
[2022-09-30] MEDS: methylPREDNISolone 125MG 2ML VIAL IV SCH (03:35)
[2022-09-30] MEDS: IPRATROPIUM 0.5MG/ALBUTEROL 2.5MG INH SOL UD 3ML (DUONEB) NEB SCH ×3 (04:00→07:17)
[2022-09-30] MEDS: traMADol 50 MG TAB PO PRN ×2 (05:41→20:06)
[2022-09-30 05:44] LABS: HEMATOCRIT 39.8 % (36.0-47.0); HEMOGLOBIN 12.9 g/dl (12.0-15.5); MEAN CORPUSCULAR HEMOGLOBIN 29.7 pg (27.0-33.0); MEAN CORPUSCULAR HGB CONC 32.4 g/dl (32.0-36.5); MEAN CORPUSCULAR VOLUME 91.5 fl (80.0-96.0); PLATELET COUNT, AUTOMATED 218 10^3/uL (150-450); RED BLOOD COUNT 4.35 10^6/uL (4.00-5.40); WHITE BLOOD COUNT 12.8 10^3/uL (4.0-10.0)
[2022-09-30 06:00] VITALS: BP 148/80
[2022-09-30 06:31] LABS: BLOOD UREA NITROGEN 13 MG/DL (7-18); CALCIUM LEVEL 9.2 MG/DL (8.8-10.2); CARBON DIOXIDE LEVEL 29 MEQ/L (21-32); CHLORIDE LEVEL 99 MEQ/L (98-107); CREATININE FOR GFR 0.59 MG/DL (0.55-1.30); GLOMERULAR FILTRATION RATE > 60.0 (>32); GLUCOSE, FASTING 159 MG/DL (70-100); POTASSIUM SERUM 4.1 MEQ/L (3.5-5.1); SODIUM LEVEL 134 MEQ/L (136-145)
[2022-09-30] MEDS: BUDESONIDE 0.5 MG/2 ML INHALATION SUSPENSION INH SCH ×2 (07:17→19:34)
[2022-09-30] MEDS: TIOTROPIUM INHALER/CAPSULE (SPIRIVA) INH SCH (07:17)
[2022-09-30] MEDS ORDERED: ALBUTEROL 90 MCG/ACT 8GM HFA INHALER INH SCH (08:00)
[2022-09-30] MEDS ORDERED: ACETAMINOPHEN 500 MG TAB PO SCH (09:00)
[2022-09-30] MEDS: atenoloL 25 MG TAB PO SCH (09:04)
[2022-09-30] MEDS: IBUPROFEN 200MG TAB PO SCH (09:04)
[2022-09-30] MEDS: DOXYCYCLINE HYCLATE 100MG TABLET PO SCH ×2 (09:04→19:59)
[2022-09-30] MEDS: OMEPRAZOLE 20MG CAP PO SCH (09:05)
[2022-09-30] MEDS: ENOXAPARIN 30MG/0.3ML SYRINGE (J1650 PER 10MG) SC SCH (09:06)
[2022-09-30] MEDS: DICLOFENAC EPOLAMINE 1.3 % PATCH TOP SCH ×2 (09:06→19:59)
[2022-09-30] MEDS ORDERED: ALBUTEROL 90 MCG/ACT 8GM HFA INHALER INH ONE (09:25)
[2022-09-30] MEDS ORDERED: GLYCERIN ADULT SUPP PR ONE (09:30)
[2022-09-30] MEDS ORDERED: GLYCERIN ADULT SUPP PR PRN (09:30)
[2022-09-30] MEDS ORDERED: KETOROLAC 30 MG/ML 1ML VIAL IV ONE (10:00)
[2022-09-30] MEDS: methylPREDNISolone 40MG 1ML VIAL IV SCH ×3 (10:11→19:56)
[2022-09-30] MEDS: ALBUTEROL 90 MCG/ACT 8GM HFA INHALER INH SCH ×3 (11:32→19:34)
[2022-09-30 14:00] VITALS: BP 133/65
[2022-09-30] MEDS ORDERED: MOM 30ML SUSPENSION UDC PO PRN (14:55)
[2022-09-30] MEDS: MIRALAX *UNIT DOSE* 17GM PACKET PO PRN (16:39)
[2022-09-30] MEDS: IBUPROFEN 400MG TAB PO SCH (18:16)
[2022-09-30 22:00] VITALS: BP 117/60
[2022-10-01] MEDS: ALBUTEROL 90 MCG/ACT 8GM HFA INHALER INH SCH ×7 (00:51→23:26)
[2022-10-01] MEDS: traMADol 50 MG TAB PO PRN ×3 (01:09→17:41)
[2022-10-01] MEDS: methylPREDNISolone 40MG 1ML VIAL IV SCH ×4 (02:04→20:33)
[2022-10-01 06:00] VITALS: BP 123/59
[2022-10-01 06:03] LABS: HEMATOCRIT 36.7 % (36.0-47.0); HEMOGLOBIN 11.9 g/dl (12.0-15.5); MEAN CORPUSCULAR HEMOGLOBIN 29.6 pg (27.0-33.0); MEAN CORPUSCULAR HGB CONC 32.4 g/dl (32.0-36.5); MEAN CORPUSCULAR VOLUME 91.3 fl (80.0-96.0); PLATELET COUNT, AUTOMATED 247 10^3/uL (150-450); RED BLOOD COUNT 4.02 10^6/uL (4.00-5.40); WHITE BLOOD COUNT 19.4 10^3/uL (4.0-10.0)
[2022-10-01 06:25] LABS: BLOOD UREA NITROGEN 17 MG/DL (7-18); CALCIUM LEVEL 9.1 MG/DL (8.8-10.2); CARBON DIOXIDE LEVEL 31 MEQ/L (21-32); CHLORIDE LEVEL 95 MEQ/L (98-107); GLOMERULAR FILTRATION RATE > 60.0 (>32); GLUCOSE, FASTING 126 MG/DL (70-100); POTASSIUM SERUM 4.4 MEQ/L (3.5-5.1); SODIUM LEVEL 131 MEQ/L (136-145)
[2022-10-01] MEDS: BUDESONIDE 0.5 MG/2 ML INHALATION SUSPENSION INH SCH ×2 (07:20→20:00)
[2022-10-01] MEDS: TIOTROPIUM INHALER/CAPSULE (SPIRIVA) INH SCH (07:20)
[2022-10-01 08:30] LABS: ABG BASE EXCESS 2.5 (-2.0-2.0); ABG HCO3 27.1 MEQ/L (22.0-26.0); ABG O2 SATURATION 96.6 % (95.0-99.0); ABG PARTIAL PRESSURE O2 80.2 mmHg (75.0-100.0); ABG STANDARD HCO3 26.7 MEQ/L (22.0-26.0); ABG TOTAL CO2 28.4 MEQ/L (23.0-31.0); ABG pH (ARTERIAL) 7.428 UNITS (7.350-7.450)
[2022-10-01] MEDS: MIRALAX *UNIT DOSE* 17GM PACKET PO PRN ×2 (08:52→20:33)
[2022-10-01] MEDS: OMEPRAZOLE 20MG CAP PO SCH (08:53)
[2022-10-01] MEDS: DOXYCYCLINE HYCLATE 100MG TABLET PO SCH ×2 (08:53→20:33)
[2022-10-01] MEDS: atenoloL 25 MG TAB PO SCH (08:53)
[2022-10-01] MEDS: IBUPROFEN 400MG TAB PO SCH ×3 (08:54→17:41)
[2022-10-01] MEDS: ENOXAPARIN 30MG/0.3ML SYRINGE (J1650 PER 10MG) SC SCH (08:54)
[2022-10-01] MEDS: DICLOFENAC EPOLAMINE 1.3 % PATCH TOP SCH ×2 (08:54→20:34)
[2022-10-01 09:22] LABS: CK-MB VALUE MASS 1.8 NG/ML (<3.6); MB/CK RELATIVE INDEX 5.14 (< OR =4)
[2022-10-01 09:23] LABS: ALBUMIN 3.4 GM/DL (3.2-5.2); BILIRUBIN,DIRECT 0.1 MG/DL (0.0-0.2); BILIRUBIN,TOTAL 0.4 MG/DL (0.2-1.0); C REACTIVE PROTEIN QUANTITATIV 2.53 MG/DL (0.00-0.30); TOTAL PROTEIN 6.4 GM/DL (6.4-8.2)
[2022-10-01] MEDS ORDERED: MAGNESIUM CITRATE 300 ML BTL PO ONE (09:50)
[2022-10-01] MEDS ORDERED: FLEET ENEMA PR PRN (09:50)
[2022-10-01] MEDS: BISACODYL 5 MG TAB PO PRN (11:02)
[2022-10-01] MEDS ORDERED: FLEET ENEMA PR ONE (12:55)
[2022-10-01] MEDS ORDERED: MOM 30ML SUSPENSION UDC PO ONE (12:55)
[2022-10-01 14:00] VITALS: BP 140/69
[2022-10-01] MEDS: SIMETHICONE 80MG CHEW TAB PO PRN (14:28)
[2022-10-01] MEDS: SENOKOT S TAB PO PRN (15:51)
[2022-10-01 20:00] VITALS: BP 140/70
[2022-10-02] MEDS: ALBUTEROL 90 MCG/ACT 8GM HFA INHALER INH SCH ×6 (03:11→21:02)
[2022-10-02] MEDS: methylPREDNISolone 40MG 1ML VIAL IV SCH ×4 (03:37→20:07)
[2022-10-02] MEDS: traMADol 50 MG TAB PO PRN (03:39)
[2022-10-02 05:51] LABS: HEMATOCRIT 40.9 % (36.0-47.0); HEMOGLOBIN 13.7 g/dl (12.0-15.5); MEAN CORPUSCULAR HEMOGLOBIN 29.9 pg (27.0-33.0); MEAN CORPUSCULAR HGB CONC 33.5 g/dl (32.0-36.5); MEAN CORPUSCULAR VOLUME 89.3 fl (80.0-96.0); PLATELET COUNT, AUTOMATED 355 10^3/uL (150-450); RED BLOOD COUNT 4.58 10^6/uL (4.00-5.40)
[2022-10-02 05:58] LABS: WHITE BLOOD COUNT 37.6 10^3/uL (4.0-10.0)
[2022-10-02 06:32] LABS: CALCIUM LEVEL 8.8 MG/DL (8.8-10.2); CREATININE FOR GFR 1.08 MG/DL (0.55-1.30); GLOMERULAR FILTRATION RATE 51.5 (>32); POTASSIUM SERUM 5.5 MEQ/L (3.5-5.1)
[2022-10-02] MEDS: BUDESONIDE 0.5 MG/2 ML INHALATION SUSPENSION INH SCH ×2 (07:17→19:24)
[2022-10-02] MEDS: TIOTROPIUM INHALER/CAPSULE (SPIRIVA) INH SCH (07:17)
[2022-10-02] MEDS ORDERED: MOM 30ML SUSPENSION UDC PO ONE (08:55)
[2022-10-02] MEDS: DICLOFENAC EPOLAMINE 1.3 % PATCH TOP SCH ×2 (08:58→20:08)
[2022-10-02] MEDS: ENOXAPARIN 30MG/0.3ML SYRINGE (J1650 PER 10MG) SC SCH (08:59)
[2022-10-02] MEDS: OMEPRAZOLE 20MG CAP PO SCH (09:00)
[2022-10-02] MEDS: DOXYCYCLINE HYCLATE 100MG TABLET PO SCH ×2 (09:01→20:08)
[2022-10-02] MEDS: BISACODYL 5 MG TAB PO PRN (09:01)
[2022-10-02] MEDS: atenoloL 25 MG TAB PO SCH (09:01)
[2022-10-02] MEDS: IBUPROFEN 400MG TAB PO SCH ×3 (09:01→17:37)
[2022-10-02] MEDS: SENOKOT S TAB PO PRN (09:02)
[2022-10-02] MEDS: MIRALAX *UNIT DOSE* 17GM PACKET PO PRN (13:03)
[2022-10-02 14:00] VITALS: BP 143/69
[2022-10-02] MEDS ORDERED: GOLYTELY SOLN 4000 ML BTL PO ONE (17:00)
[2022-10-02] MEDS: ALBUTEROL 90 MCG/ACT 8GM HFA INHALER INH PRN (17:52)
[2022-10-02 22:00] VITALS: BP 164/81
[2022-10-03] MEDS: ALBUTEROL 90 MCG/ACT 8GM HFA INHALER INH PRN (00:36)
[2022-10-03] MEDS: methylPREDNISolone 40MG 1ML VIAL IV SCH ×2 (02:31→16:34)
[2022-10-03] MEDS: ALBUTEROL 90 MCG/ACT 8GM HFA INHALER INH SCH ×5 (04:14→21:40)
[2022-10-03] MEDS: traMADol 50 MG TAB PO PRN (05:07)
[2022-10-03 06:00] VITALS: BP 133/64
[2022-10-03 06:11] LABS: HEMATOCRIT 39.9 % (36.0-47.0); HEMOGLOBIN 13.5 g/dl (12.0-15.5); MEAN CORPUSCULAR HEMOGLOBIN 29.7 pg (27.0-33.0); MEAN CORPUSCULAR HGB CONC 33.8 g/dl (32.0-36.5); MEAN CORPUSCULAR VOLUME 87.9 fl (80.0-96.0); PLATELET COUNT, AUTOMATED 311 10^3/uL (150-450); RED BLOOD COUNT 4.54 10^6/uL (4.00-5.40)
[2022-10-03 06:40] LABS: BLOOD UREA NITROGEN 23 MG/DL (7-18); CALCIUM LEVEL 8.8 MG/DL (8.8-10.2); CARBON DIOXIDE LEVEL 31 MEQ/L (21-32); CHLORIDE LEVEL 87 MEQ/L (98-107); CREATININE FOR GFR 0.79 MG/DL (0.55-1.30); GLOMERULAR FILTRATION RATE > 60.0 (>32); GLUCOSE, FASTING 111 MG/DL (70-100); POTASSIUM SERUM 4.2 MEQ/L (3.5-5.1); SODIUM LEVEL 125 MEQ/L (136-145)
[2022-10-03] MEDS: TIOTROPIUM INHALER/CAPSULE (SPIRIVA) INH SCH (07:35)
[2022-10-03] MEDS: BUDESONIDE 0.5 MG/2 ML INHALATION SUSPENSION INH SCH ×2 (07:36→21:40)
[2022-10-03] MEDS: FORMOTEROL FUMARATE 20 MCG/2 ML INHALATION SOLUTION (PERFOROMIST) INH SCH ×2 (08:00→21:40)
[2022-10-03 08:34] VITALS: BP 135/62
[2022-10-03] MEDS: OMEPRAZOLE 20MG CAP PO SCH (08:38)
[2022-10-03] MEDS: DICLOFENAC EPOLAMINE 1.3 % PATCH TOP SCH ×2 (08:38→22:56)
[2022-10-03] MEDS: IBUPROFEN 400MG TAB PO SCH ×3 (08:39→18:11)
[2022-10-03] MEDS: ENOXAPARIN 30MG/0.3ML SYRINGE (J1650 PER 10MG) SC SCH (08:39)
[2022-10-03] MEDS ORDERED: BISACODYL ENEMA 10 MG/30 ML PR SCH (09:00)
[2022-10-03] MEDS: DOXYCYCLINE HYCLATE 100MG TABLET PO SCH ×2 (10:12→22:56)
[2022-10-03] MEDS: atenoloL 25 MG TAB PO SCH (10:12)
[2022-10-03 14:00] VITALS: BP 140/69
[2022-10-03 22:00] VITALS: BP 139/69
[2022-10-03 23:58] LABS: OSMOLALITY URINE 283 MOSM/KG (50-1400)
[2022-10-04 00:04] LABS: SODIUM,RANDOM URINE 11 MMOL/L
[2022-10-04] MEDS: ALBUTEROL 90 MCG/ACT 8GM HFA INHALER INH SCH ×8 (00:23→23:37)
[2022-10-04] MEDS: traMADol 50 MG TAB PO PRN (00:28)
[2022-10-04] MEDS: methylPREDNISolone 40MG 1ML VIAL IV SCH (02:32)
[2022-10-04 06:00] VITALS: BP 134/66
[2022-10-04 06:00] LABS: HEMATOCRIT 37.4 % (36.0-47.0); HEMOGLOBIN 12.6 g/dl (12.0-15.5); MEAN CORPUSCULAR HEMOGLOBIN 29.8 pg (27.0-33.0); MEAN CORPUSCULAR HGB CONC 33.7 g/dl (32.0-36.5); MEAN CORPUSCULAR VOLUME 88.4 fl (80.0-96.0); PLATELET COUNT, AUTOMATED 244 10^3/uL (150-450); RED BLOOD COUNT 4.23 10^6/uL (4.00-5.40); WHITE BLOOD COUNT 23.1 10^3/uL (4.0-10.0)
[2022-10-04 06:46] LABS: BLOOD UREA NITROGEN 21 MG/DL (9-23); CALCIUM LEVEL 8.4 MG/DL (8.3-10.6); CARBON DIOXIDE LEVEL 31 MMOL/L (20-31); CHLORIDE LEVEL 88 MMOL/L (98-107); CREATININE FOR GFR 0.66 MG/DL (0.55-1.30); GLOMERULAR FILTRATION RATE > 60.0 (>32); GLUCOSE, FASTING 102 MG/DL (74-106); POTASSIUM SERUM 4.1 MMOL/L (3.5-5.1); SODIUM LEVEL 129 MMOL/L (136-145)
[2022-10-04] MEDS: BUDESONIDE 0.5 MG/2 ML INHALATION SUSPENSION INH SCH ×2 (07:44→07:47)
[2022-10-04] MEDS: FORMOTEROL FUMARATE 20 MCG/2 ML INHALATION SOLUTION (PERFOROMIST) INH SCH ×2 (07:44→07:47)
[2022-10-04] MEDS: TIOTROPIUM INHALER/CAPSULE (SPIRIVA) INH SCH (07:44)
[2022-10-04 08:56] LABS: MAGNESIUM LEVEL 2.3 MG/DL (1.8-2.4)
[2022-10-04 09:00] VITALS: BP 134/78
[2022-10-04] MEDS: MIRALAX *UNIT DOSE* 17GM PACKET PO SCH (09:00)
[2022-10-04] MEDS: BISACODYL 10 MG SUPP PR SCH (09:00)
[2022-10-04] MEDS: SENOKOT S TAB PO SCH ×2 (09:00→20:54)
[2022-10-04] MEDS: IBUPROFEN 400MG TAB PO SCH ×3 (09:01→18:51)
[2022-10-04] MEDS: DOXYCYCLINE HYCLATE 100MG TABLET PO SCH (11:14)
[2022-10-04] MEDS: SIMETHICONE 80MG CHEW TAB PO PRN ×2 (11:14→18:52)
[2022-10-04] MEDS: ENOXAPARIN 30MG/0.3ML SYRINGE (J1650 PER 10MG) SC SCH (11:14)
[2022-10-04] MEDS: predniSONE 20 MG TAB PO SCH (12:08)
[2022-10-04] MEDS: OMEPRAZOLE 20MG CAP PO SCH ×2 (12:09→20:52)
[2022-10-04] MEDS: atenoloL 25 MG TAB PO SCH (12:10)
[2022-10-04] MEDS: DICLOFENAC EPOLAMINE 1.3 % PATCH TOP SCH ×2 (12:11→20:53)
[2022-10-04 14:00] VITALS: BP_SYST 146; BP_SYST 154; BP_DIAS 72; BP_DIAS 75
[2022-10-04] MEDS: SYMBICORT 160/4.5MCG INHALER 6GM INH SCH (20:42)
[2022-10-04] MEDS: guaiFENesin SYRUP 200MG 10ML UDC PO PRN (20:53)
[2022-10-04 21:00] VITALS: BP 127/57
[2022-10-05] MEDS: ALBUTEROL 90 MCG/ACT 8GM HFA INHALER INH SCH ×8 (01:41→23:12)
[2022-10-05 05:50] VITALS: BP 120/57
[2022-10-05 05:59] LABS: HEMOGLOBIN 12.8 g/dl (12.0-15.5); MEAN CORPUSCULAR HGB CONC 33.7 g/dl (32.0-36.5); PLATELET COUNT, AUTOMATED 253 10^3/uL (150-450); RED BLOOD COUNT 4.27 10^6/uL (4.00-5.40); WHITE BLOOD COUNT 17.7 10^3/uL (4.0-10.0)
[2022-10-05 06:39] LABS: OSMOLALITY URINE 240 MOSM/KG (50-1400)
[2022-10-05 07:04] LABS: BLOOD UREA NITROGEN 18 MG/DL (9-23); CALCIUM LEVEL 9.5 MG/DL (8.3-10.6); CARBON DIOXIDE LEVEL 34 MMOL/L (20-31); CHLORIDE LEVEL 93 MMOL/L (98-107); CREATININE FOR GFR 0.68 MG/DL (0.55-1.30); GLOMERULAR FILTRATION RATE > 60.0 (>32); GLUCOSE, FASTING 90 MG/DL (74-106); POTASSIUM SERUM 4.2 MMOL/L (3.5-5.1); SODIUM LEVEL 134 MMOL/L (136-145)
[2022-10-05 07:09] LABS: SODIUM,RANDOM URINE 48 MMOL/L
[2022-10-05 07:37] VITALS: BP 137/61
[2022-10-05] MEDS: SYMBICORT 160/4.5MCG INHALER 6GM INH SCH ×2 (07:55→19:14)
[2022-10-05] MEDS: TIOTROPIUM INHALER/CAPSULE (SPIRIVA) INH SCH (07:55)
[2022-10-05] MEDS: OMEPRAZOLE 20MG CAP PO SCH ×2 (08:37→20:34)
[2022-10-05] MEDS: predniSONE 20 MG TAB PO SCH (08:37)
[2022-10-05] MEDS: SIMETHICONE 80MG CHEW TAB PO PRN ×2 (08:37→18:07)
[2022-10-05] MEDS: ENOXAPARIN 30MG/0.3ML SYRINGE (J1650 PER 10MG) SC SCH (08:38)
[2022-10-05] MEDS: IBUPROFEN 400MG TAB PO SCH ×3 (08:38→18:03)
[2022-10-05] MEDS: DICLOFENAC EPOLAMINE 1.3 % PATCH TOP SCH ×2 (08:38→20:35)
[2022-10-05] MEDS: MIRALAX *UNIT DOSE* 17GM PACKET PO SCH (08:50)
[2022-10-05] MEDS: SENOKOT S TAB PO SCH ×2 (08:50→20:34)
[2022-10-05] MEDS: atenoloL 25 MG TAB PO SCH (08:58)
[2022-10-05] MEDS: BISACODYL 10 MG SUPP PR SCH (08:59)
[2022-10-05] MEDS ORDERED: ALBUTEROL 90 MCG/ACT 8GM HFA INHALER INH PRN (10:05)
[2022-10-05 14:00] VITALS: BP 132/66
[2022-10-05] MEDS: guaiFENesin SYRUP 200MG 10ML UDC PO PRN (20:35)
[2022-10-05 22:00] VITALS: BP 122/60
[2022-10-06] MEDS: ALBUTEROL 90 MCG/ACT 8GM HFA INHALER INH SCH ×8 (01:33→21:58)
[2022-10-06] MEDS: TIOTROPIUM INHALER/CAPSULE (SPIRIVA) INH SCH (05:49)
[2022-10-06] MEDS: SYMBICORT 160/4.5MCG INHALER 6GM INH SCH ×2 (05:52→18:59)
[2022-10-06 06:00] VITALS: BP 138/65
[2022-10-06 06:06] LABS: HEMATOCRIT 36.6 % (36.0-47.0); HEMOGLOBIN 12.2 g/dl (12.0-15.5); MEAN CORPUSCULAR HGB CONC 33.3 g/dl (32.0-36.5); MEAN CORPUSCULAR VOLUME 90.1 fl (80.0-96.0); PLATELET COUNT, AUTOMATED 251 10^3/uL (150-450); RED BLOOD COUNT 4.06 10^6/uL (4.00-5.40)
[2022-10-06] MEDS: traMADol 50 MG TAB PO PRN (06:42)
[2022-10-06 07:41] LABS: BLOOD UREA NITROGEN 17 MG/DL (9-23); CALCIUM LEVEL 8.2 MG/DL (8.3-10.6); CARBON DIOXIDE LEVEL 33 MMOL/L (20-31); CHLORIDE LEVEL 94 MMOL/L (98-107); CREATININE FOR GFR 0.66 MG/DL (0.55-1.30); GLOMERULAR FILTRATION RATE > 60.0 (>32); GLUCOSE, FASTING 98 MG/DL (74-106); POTASSIUM SERUM 3.6 MMOL/L (3.5-5.1); SODIUM LEVEL 134 MMOL/L (136-145)
[2022-10-06] MEDS: MIRALAX *UNIT DOSE* 17GM PACKET PO SCH (08:18)
[2022-10-06] MEDS: ENOXAPARIN 30MG/0.3ML SYRINGE (J1650 PER 10MG) SC SCH (08:18)
[2022-10-06] MEDS: BISACODYL 10 MG SUPP PR SCH (08:18)
[2022-10-06] MEDS: IBUPROFEN 400MG TAB PO SCH ×3 (08:19→19:11)
[2022-10-06] MEDS: predniSONE 20 MG TAB PO SCH (08:19)
[2022-10-06] MEDS: SENOKOT S TAB PO SCH ×2 (08:19→19:11)
[2022-10-06] MEDS: OMEPRAZOLE 20MG CAP PO SCH ×2 (08:19→19:11)
[2022-10-06] MEDS: atenoloL 25 MG TAB PO SCH (08:19)
[2022-10-06] MEDS: DICLOFENAC EPOLAMINE 1.3 % PATCH TOP SCH ×2 (08:20→19:12)
[2022-10-06] MEDS: SIMETHICONE 80MG CHEW TAB PO PRN ×2 (13:24→20:27)
[2022-10-06 19:00] VITALS: O2SAT 96
[2022-10-07] MEDS: ALBUTEROL 90 MCG/ACT 8GM HFA INHALER INH SCH ×8 (00:03→20:00)
[2022-10-07 06:00] VITALS: BP 117/71
[2022-10-07] MEDS: SIMETHICONE 80MG CHEW TAB PO PRN ×2 (07:11→13:49)
[2022-10-07 08:05] VITALS: O2SAT 96
[2022-10-07] MEDS: SYMBICORT 160/4.5MCG INHALER 6GM INH SCH ×2 (08:07→20:53)
[2022-10-07] MEDS: TIOTROPIUM INHALER/CAPSULE (SPIRIVA) INH SCH (08:07)
[2022-10-07] MEDS: DICLOFENAC EPOLAMINE 1.3 % PATCH TOP SCH ×2 (08:31→20:38)
[2022-10-07] MEDS: MIRALAX *UNIT DOSE* 17GM PACKET PO SCH (08:32)
[2022-10-07] MEDS: ENOXAPARIN 30MG/0.3ML SYRINGE (J1650 PER 10MG) SC SCH (08:32)
[2022-10-07] MEDS: BISACODYL 10 MG SUPP PR SCH (08:32)
[2022-10-07] MEDS: atenoloL 25 MG TAB PO SCH (08:33)
[2022-10-07] MEDS: OMEPRAZOLE 20MG CAP PO SCH ×2 (08:33→20:34)
[2022-10-07] MEDS: predniSONE 20 MG TAB PO SCH (08:33)
[2022-10-07] MEDS: SENOKOT S TAB PO SCH ×2 (08:33→20:34)
[2022-10-07] MEDS: IBUPROFEN 400MG TAB PO SCH ×3 (08:34→17:30)
[2022-10-08] MEDS: ALBUTEROL 90 MCG/ACT 8GM HFA INHALER INH SCH ×8 (01:55→22:54)
[2022-10-08 06:00] VITALS: BP 139/60
[2022-10-08] MEDS: SIMETHICONE 80MG CHEW TAB PO PRN ×3 (06:59→20:21)
[2022-10-08 07:18] VITALS: O2SAT 96
[2022-10-08] MEDS: TIOTROPIUM INHALER/CAPSULE (SPIRIVA) INH SCH (07:20)
[2022-10-08] MEDS: SYMBICORT 160/4.5MCG INHALER 6GM INH SCH ×2 (07:20→18:04)
[2022-10-08] MEDS: predniSONE 10 MG TAB PO SCH (08:53)
[2022-10-08] MEDS: BISACODYL 10 MG SUPP PR SCH ×2 (08:53→09:00)
[2022-10-08] MEDS: atenoloL 25 MG TAB PO SCH (08:53)
[2022-10-08] MEDS: ENOXAPARIN 30MG/0.3ML SYRINGE (J1650 PER 10MG) SC SCH (08:53)
[2022-10-08] MEDS: OMEPRAZOLE 20MG CAP PO SCH ×2 (08:54→20:20)
[2022-10-08] MEDS: SENOKOT S TAB PO SCH ×2 (08:54→20:21)
[2022-10-08] MEDS: IBUPROFEN 400MG TAB PO SCH ×3 (08:54→19:01)
[2022-10-08] MEDS: DICLOFENAC EPOLAMINE 1.3 % PATCH TOP SCH ×2 (08:54→20:21)
[2022-10-08] MEDS: MIRALAX *UNIT DOSE* 17GM PACKET PO SCH (08:55)
[2022-10-08] MEDS: guaiFENesin SYRUP 200MG 10ML UDC PO PRN (13:28)
[2022-10-09] MEDS: ALBUTEROL 90 MCG/ACT 8GM HFA INHALER INH SCH ×8 (01:41→22:08)
[2022-10-09 06:00] VITALS: BP 125/54
[2022-10-09 06:26] LABS: BASO % 0.2 % (0.0-1.0); EOS # 0.1 10^3/uL (0.0-0.5); EOS % 0.4 % (0.0-3.0); HEMATOCRIT 35.9 % (36.0-47.0); HEMOGLOBIN 11.7 g/dl (12.0-15.5); LYMPH # 2.2 10^3/uL (1.5-5.0); LYMPH % 11.4 % (24.0-44.0); MEAN CORPUSCULAR HEMOGLOBIN 29.8 pg (27.0-33.0); MEAN CORPUSCULAR HGB CONC 32.6 g/dl (32.0-36.5); MEAN CORPUSCULAR VOLUME 91.6 fl (80.0-96.0); MONO # 1.3 10^3/uL (0.0-0.8); MONO % 6.9 % (2.0-8.0); NEUTROPHILS % 79.7 % (36.0-66.0); PLATELET COUNT, AUTOMATED 302 10^3/uL (150-450); RED BLOOD COUNT 3.92 10^6/uL (4.00-5.40); WHITE BLOOD COUNT 18.9 10^3/uL (4.0-10.0)
[2022-10-09 07:05] LABS: BLOOD UREA NITROGEN 12 MG/DL (9-23); CARBON DIOXIDE LEVEL 34 MMOL/L (20-31); CHLORIDE LEVEL 99 MMOL/L (98-107); CREATININE FOR GFR 0.63 MG/DL (0.55-1.30); GLOMERULAR FILTRATION RATE > 60.0 (>32); GLUCOSE, FASTING 83 MG/DL (74-106); POTASSIUM SERUM 3.5 MMOL/L (3.5-5.1); SODIUM LEVEL 138 MMOL/L (136-145)
[2022-10-09] MEDS: SYMBICORT 160/4.5MCG INHALER 6GM INH SCH ×2 (07:16→19:18)
[2022-10-09] MEDS: TIOTROPIUM INHALER/CAPSULE (SPIRIVA) INH SCH (07:16)
[2022-10-09] MEDS ORDERED: OMEP40CA5 PO (07:44)
[2022-10-09] MEDS ORDERED: GUAI100S51 PO (07:44)
[2022-10-09] MEDS ORDERED: DICL1PAT6 TOP (07:44)
[2022-10-09] MEDS ORDERED: TRAM50TA2 PO (07:44)
[2022-10-09] MEDS ORDERED: SIME80TA16 PO (07:44)
[2022-10-09] MEDS ORDERED: BISA10SU PR (07:44)
[2022-10-09] MEDS ORDERED: MIRA1POW3 PO (07:44)
[2022-10-09] MEDS ORDERED: SENN-52 PO (07:44)
[2022-10-09] MEDS ORDERED: VENTAER INH (07:44)
[2022-10-09] MEDS ORDERED: SYMB16INH INH (07:44)
[2022-10-09] MEDS ORDERED: IBUP-1114 PO (07:44)
[2022-10-09] MEDS ORDERED: PRED10TA2 PO (07:47)
[2022-10-09] MEDS: ENOXAPARIN 30MG/0.3ML SYRINGE (J1650 PER 10MG) SC SCH (08:09)
[2022-10-09] MEDS: DICLOFENAC EPOLAMINE 1.3 % PATCH TOP SCH ×2 (08:09→20:43)
[2022-10-09] MEDS: predniSONE 10 MG TAB PO SCH (08:10)
[2022-10-09] MEDS: SENOKOT S TAB PO SCH ×3 (08:10→20:43)
[2022-10-09] MEDS: OMEPRAZOLE 20MG CAP PO SCH ×2 (08:10→20:38)
[2022-10-09] MEDS: atenoloL 25 MG TAB PO SCH (08:11)
[2022-10-09] MEDS: IBUPROFEN 400MG TAB PO SCH ×3 (08:11→17:36)
[2022-10-09] MEDS: MIRALAX *UNIT DOSE* 17GM PACKET PO SCH (08:17)
[2022-10-09] MEDS: BISACODYL 10 MG SUPP PR SCH (08:17)
[2022-10-10] MEDS: ALBUTEROL 90 MCG/ACT 8GM HFA INHALER INH SCH ×3 (01:00→07:21)
[2022-10-10 05:41] VITALS: BP 127/57
[2022-10-10] MEDS: TIOTROPIUM INHALER/CAPSULE (SPIRIVA) INH SCH (07:21)
[2022-10-10] MEDS: SYMBICORT 160/4.5MCG INHALER 6GM INH SCH (07:21)
[2022-10-10] MEDS: predniSONE 10 MG TAB PO SCH (08:31)
[2022-10-10] MEDS: SIMETHICONE 80MG CHEW TAB PO PRN (08:31)
[2022-10-10] MEDS: IBUPROFEN 400MG TAB PO SCH (08:32)
[2022-10-10] MEDS: OMEPRAZOLE 20MG CAP PO SCH (08:33)
[2022-10-10 08:34] VITALS: BP 127/57
[2022-10-10] MEDS: MIRALAX *UNIT DOSE* 17GM PACKET PO SCH (08:34)
[2022-10-10] MEDS: atenoloL 25 MG TAB PO SCH (08:34)
[2022-10-10] MEDS: SENOKOT S TAB PO SCH (08:34)
[2022-10-10] MEDS: BISACODYL 10 MG SUPP PR SCH (08:35)
[2022-10-10] MEDS: ENOXAPARIN 30MG/0.3ML SYRINGE (J1650 PER 10MG) SC SCH (08:36)
[2022-10-10] MEDS: DICLOFENAC EPOLAMINE 1.3 % PATCH TOP SCH (08:36)
== END 2022-10-10 10:15 | DRG 140 ==
LOC: EDBD 12:42 → M ED 12:42 → M ED INP 15:11 → ENRESERV 20:18 → M MSPAV 22:31
PROVIDERS: ADMIT General Practice; ATTEND Student in an Organized Health Care Education/Training Program
DX: J44.1 Chronic obstructive pulmonary disease with (acute) exacerbation (principal); J96.21 Acute and chronic respiratory failure with hypoxia; I27.20 Pulmonary hypertension, unspecified; Z99.81 Dependence on supplemental oxygen; E87.1 Hypo-osmolality and hyponatremia; I34.0 Nonrheumatic mitral (valve) insufficiency; R33.9 Retention of urine, unspecified; I10 Essential (primary) hypertension; K59.00 Constipation, unspecified; M54.50 Low back pain, unspecified; Z79.899 Other long term (current) drug therapy; I16.0 Hypertensive urgency; R00.0 Tachycardia, unspecified; D72.829 Elevated white blood cell count, unspecified

== ENCOUNTER → 2022-10-11 | Outpatient (REF) ==
[~2022-10-11] MED LIST changes: +AZIT-12 PO; +BISA10SU PR; +BUDE0.5S6 INH; +DICL1PAT6 TOP; +FEXO-117 PO; +GUAI100S51 PO; +IBUP-1114 PO; +MIRA1POW3 PO; +OMEP40CA5 PO; +SENN-52 PO; +SIME80TA16 PO; +SYMB16INH INH; +TRAM50TA2 PO; +VENTAER INH
[2022-10-11 10:39] LABS: HEMATOCRIT 38.1 % (36.0-47.0); HEMOGLOBIN 12.2 g/dl (12.0-15.5); MEAN CORPUSCULAR HEMOGLOBIN 29.3 pg (27.0-33.0); MEAN CORPUSCULAR VOLUME 91.6 fl (80.0-96.0); PLATELET COUNT, AUTOMATED 361 10^3/uL (150-450); RED BLOOD COUNT 4.16 10^6/uL (4.00-5.40); WHITE BLOOD COUNT 16.7 10^3/uL (4.0-10.0)
[2022-10-11 11:30] LABS: BLOOD UREA NITROGEN 15 MG/DL (9-23); CALCIUM LEVEL 8.4 MG/DL (8.3-10.6); CARBON DIOXIDE LEVEL 31 MMOL/L (20-31); CHLORIDE LEVEL 97 MMOL/L (98-107); CREATININE FOR GFR 0.65 MG/DL (0.55-1.30); GLOMERULAR FILTRATION RATE > 60.0 (>32); GLUCOSE, FASTING 89 MG/DL (74-106); POTASSIUM SERUM 3.6 MMOL/L (3.5-5.1); SODIUM LEVEL 136 MMOL/L (136-145)
== END ==
PROVIDERS: ATTEND Internal Medicine
DX: R06.02 Shortness of breath (principal)

== ENCOUNTER → 2022-10-18 | Outpatient (REF) ==
[2022-10-18 12:04] LABS: HEMATOCRIT 36.6 % (36.0-47.0); HEMOGLOBIN 11.8 g/dl (12.0-15.5); MEAN CORPUSCULAR HEMOGLOBIN 29.9 pg (27.0-33.0); MEAN CORPUSCULAR HGB CONC 32.2 g/dl (32.0-36.5); MEAN CORPUSCULAR VOLUME 92.9 fl (80.0-96.0); PLATELET COUNT, AUTOMATED 271 10^3/uL (150-450); RED BLOOD COUNT 3.94 10^6/uL (4.00-5.40); WHITE BLOOD COUNT 14.3 10^3/uL (4.0-10.0)
[2022-10-18 12:30] LABS: BLOOD UREA NITROGEN 9 MG/DL (9-23); CALCIUM LEVEL 8.2 MG/DL (8.3-10.6); CARBON DIOXIDE LEVEL 29 MMOL/L (20-31); CHLORIDE LEVEL 96 MMOL/L (98-107); CREATININE FOR GFR 0.47 MG/DL (0.55-1.30); GLOMERULAR FILTRATION RATE > 60.0 (>32); GLUCOSE, FASTING 79 MG/DL (74-106); POTASSIUM SERUM 4.5 MMOL/L (3.5-5.1); SODIUM LEVEL 133 MMOL/L (136-145)
== END ==
PROVIDERS: ATTEND Internal Medicine
DX: E22.2 Syndrome of inappropriate secretion of antidiuretic hormone (principal)

== ENCOUNTER → 2023-03-21 | Outpatient (REF) | payer MEDICARE, OTHER ==
[~2023-03-21] MED LIST changes: -DILT1CAP7 PO; +DILT300C16 PO; -LOSA100T45 PO; +LOSA100T46 PO
== END ==
PROVIDERS: ATTEND Internal Medicine
DX: J84.9 Interstitial pulmonary disease, unspecified (principal); I70.0 Atherosclerosis of aorta

== ENCOUNTER → 2023-08-22 | Outpatient (REF) | payer MEDICARE | PROVIDERS: ATTEND Internal Medicine | DX: R05.9 Cough, unspecified (principal) ==

== ENCOUNTER → 2023-10-03 | Outpatient (REF) | payer MEDICARE | PROVIDERS: ATTEND Internal Medicine | DX: K59.00 Constipation, unspecified (principal) ==

== ENCOUNTER 2024-03-20 05:47 | Inpatient (IN) | payer MEDICARE ==
[~2024-03-20] VITALS: Ht 165.1 cm; Wt 50.0 kg
[~2024-03-20 05:47] MED LIST changes: -HYDR-3910 PO; -HYDR-3911 PO; +HYDR25TA87 PO; +HYDR50TA46 PO; -MIRA1POW3 PO; +MIRA33506 PO
[2024-03-20 06:29] VITALS: BP 121/77; TEMP 97.8; O2SAT 86
[2024-03-20 06:48] LABS: BASO % 0.1 % (0.0-1.0); EOS % 0.1 % (0.0-3.0); HEMATOCRIT 38.2 % (36.0-47.0); HEMOGLOBIN 12.7 g/dl (12.0-15.5); LYMPH # 1.3 10^3/uL (1.5-5.0); LYMPH % 5.6 % (24.0-44.0); MEAN CORPUSCULAR HEMOGLOBIN 28.7 pg (27.0-33.0); MEAN CORPUSCULAR HGB CONC 33.2 g/dl (32.0-36.5); MEAN CORPUSCULAR VOLUME 86.2 fl (80.0-96.0); MONO # 1.3 10^3/uL (0.0-0.8); MONO % 5.3 % (2.0-8.0); NEUTROPHILS # 21.2 10^3/uL (1.5-8.5); NEUTROPHILS % 88.1 % (36.0-66.0); PLATELET COUNT, AUTOMATED 302 10^3/uL (150-450); RED BLOOD COUNT 4.43 10^6/uL (4.00-5.40)
[2024-03-20 06:59] LABS: PROTHROMBIN TIME 12.9 SECONDS (12.5-14.5)
[2024-03-20 07:15] LABS: BLOOD UREA NITROGEN 26 MG/DL (9-23); CALCIUM LEVEL 8.1 MG/DL (8.3-10.6); CARBON DIOXIDE LEVEL 29 MMOL/L (20-31); CHLORIDE LEVEL 98 MMOL/L (98-107); CREATININE FOR GFR 0.55 MG/DL (0.55-1.30); GLOMERULAR FILTRATION RATE > 60.0 (>32); GLUCOSE, FASTING 75 MG/DL (74-106); POTASSIUM SERUM 4.2 MMOL/L (3.5-5.1); SODIUM LEVEL 136 MMOL/L (136-145)
[2024-03-20] MEDS ORDERED: ISOVUE-370 76% 100ML VIAL As Ordered ONE (07:18)
[2024-03-20] MEDS: IPRATROPIUM 0.5MG/ALBUTEROL 2.5MG INH SOL UD 3ML (DUONEB) NEB SCH ×2 (07:29→11:36)
[2024-03-20 07:54] LABS: ABG HCO3 26.1 MMOL/L (22.0-26.0); ABG O2 SATURATION 91.2 % (95.0-99.0); ABG PARTIAL PRESSURE CO2 38.7 mmHg (35.0-45.0); ABG PARTIAL PRESSURE O2 61.1 mmHg (75.0-100.0); ABG STANDARD HCO3 26.1 MMOL/L. (22.0-26.0); ABG TOTAL CO2 27.2 MMOL/L (23.0-31.0); ABG pH (ARTERIAL) 7.446 UNITS (7.350-7.450)
[2024-03-20] MEDS: methylPREDNISolone 125MG 2ML VIAL IV ONE (07:56)
[2024-03-20 08:46] LABS: ALBUMIN 2.4 G/DL (3.2-5.2); ALKALINE PHOSPHATASE 124 U/L (46-116); ALT/SGPT 18 U/L (7.0-40); AST/SGOT 34 U/L (<34); BILIRUBIN,DIRECT 0.1 MG/DL (<0.4); BILIRUBIN,TOTAL 0.5 MG/DL (0.3-1.2); LIPASE 22 U/L (12-53); TOTAL PROTEIN 5.4 G/DL (5.7-8.2)
[2024-03-20] MEDS ORDERED: PRED5TA PO (08:51)
[2024-03-20] MEDS ORDERED: MIRA3350 PO (08:51)
[2024-03-20] MEDS ORDERED: BREO1INH3 INH (08:51)
[2024-03-20] MEDS ORDERED: SENN-23 PO (08:52)
[2024-03-20] MEDS: cefTRIAXone SOD 2 GM in D5W MINI-BAG PLUS 50 ML IV ONE (08:52)
[2024-03-20] MEDS ORDERED: INCR1INH INH (08:52)
[2024-03-20] MEDS ORDERED: OMEP40CA5 PO (08:52)
[2024-03-20] MEDS ORDERED: JUVE1POW PO (08:52)
[2024-03-20] MEDS ORDERED: VENTAER INH (08:59)
[2024-03-20] MEDS ORDERED: ATIV1TAB10 PO (08:59)
[2024-03-20] MEDS ORDERED: OXYC-517 PO (08:59)
[2024-03-20] MEDS ORDERED: BISA10SU27 PR (09:03)
[2024-03-20] MEDS ORDERED: SIME80CH5 PO (09:03)
[2024-03-20] MEDS ORDERED: ACET1TAB55 PO (09:03)
[2024-03-20] MEDS ORDERED: FLEEENE12 PR (09:03)
[2024-03-20] MEDS ORDERED: MOM30SS2 PO (09:03)
[2024-03-20] MEDS ORDERED: HOME MED LIST COMPLETE! XX SCH (09:05)
[2024-03-20 14:31] VITALS: BP 103/62; O2SAT 96
[2024-03-20] MEDS: LORazepam 1 MG TAB PO PRN (15:04)
[2024-03-21] MEDS: MORPHINE 10MG/0.5ML ORAL CONCENTRATE SOLUTION U/D SL PRN (18:26)
[2024-03-21] MEDS: SCOPOLAMINE 1MG TRANSDERMAL PATCH TOP PRN (18:27)
[2024-03-21] MEDS ORDERED: SIMETHICONE 40MG/0.6ML DROPS 30ML PO PRN (20:45)
[2024-03-22] MEDS: ATROPINE SULFATE 1% OPHTH SOLN 2ML BTL SL PRN (08:09)
[2024-03-22] MEDS: MORPHINE 10MG/0.5ML ORAL CONCENTRATE SOLUTION U/D SL ONE (08:50)
[2024-03-22] MEDS: MORPHINE 10MG/0.5ML ORAL CONCENTRATE SOLUTION U/D SL PRN (10:46)
== END 2024-03-24 15:51 | disposition expired | DRG 177 ==
LOC: M ED 05:47 → M ED INP 09:20 → M MSPAV 14:56
PROVIDERS: ADMIT Student in an Organized Health Care Education/Training Program; ATTEND Student in an Organized Health Care Education/Training Program
DX: J69.0 Pneumonitis due to inhalation of food and vomit (principal); J96.21 Acute and chronic respiratory failure with hypoxia; I63.9 Cerebral infarction, unspecified; A41.9 Sepsis, unspecified organism; R65.21 Severe sepsis with septic shock; G83.4 Cauda equina syndrome; E87.1 Hypo-osmolality and hyponatremia; J12.2 Parainfluenza virus pneumonia; J44.9 Chronic obstructive pulmonary disease, unspecified; I10 Essential (primary) hypertension; Z74.01 Bed confinement status; R33.9 Retention of urine, unspecified; Z51.5 Encounter for palliative care; Z79.899 Other long term (current) drug therapy